=== PATIENT | female | born 1980 | race African-American/Black ===

== ENCOUNTER 2018-09-10 22:41 | Emergency (ER) | payer OTHER ==
[~2018-09-10] VITALS: Ht 160 cm; Wt 59.0 kg
[2018-09-10 23:03] VITALS: BP 157/109; Ht 160 cm; Wt 59.0 kg
== END 2018-09-11 02:22 | disposition left against medical advice (07) ==
LOC: ED 22:41
DX: Z53.21 Procedure and treatment not carried out due to patient leaving prior to being seen by health care provider (principal)